=== PATIENT | female | born 1975 | race Caucasian/White ===

== ENCOUNTER 2020-07-19 14:15 | Observation (INO) | payer SELFPAY ==
[2020-07-19 15:14] LABS: Absolute Lymphocytes (CBC) 2.2 K/uL (0.7-4.9); Basophils % 0.9 % (0-1.3); Hematocrit 41.7 % (36.0-45.0); MPV 7.7 fL (7.6-11.3); RBC Red Blood Cell Count 4.63 M/uL (3.86-4.86)
[2020-07-19 15:27] LABS: Protime INR 0.91
[2020-07-19] MEDS ORDERED: LABETALOL 20 MG/4ML SYRINGE IV ONE (15:35)
[2020-07-19 15:41] LABS: ALT/SGPT 28 U/L (12-78); AST/SGOT 11 U/L (15-37); Albumin 3.9 g/dL (3.4-5.0); Alkaline Phosphatase 137 U/L (45-117); BUN Blood Urea Nitrogen 8 mg/dL (7-18); Bicarbonate 29 mmol/L (21-32); Bilirubin Direct 0.1 mg/dL (0-0.2); Bilirubin Total 0.3 mg/dL (0.2-1.0); Glucose Level 128 mg/dL (74-106); NT PRO-BNP 56 pg/mL (<125); Protein, Total 7.7 g/dL (6.4-8.2); Sodium Level 140 mmol/L (136-145); Thyroid Stimulating Hormone 0.685 uIU/mL (0.360-3.740); Troponin (Emerg Dept Use Only) < 0.02 ng/mL (0.0-0.045)
--- NOTE | 2020-07-19 16:20 | RAD REPORT ---
EXAM DESCRIPTION: CT - Angio Aorta For Dissection - 07/19/2020 3:57 pm CLINICAL HISTORY: . Chest and abd pain COMPARISON: None TECHNIQUE: Computed tomography angiography of the chest, abdomen pelvis were obtained. 100 cc Isovue 370 was administered intravenously. Coronal and sagittal reconstruction were performed. MIP 3D reconstruction was performed All CT scans are performed using dose optimization technique as appropriate and may include automated exposure control or mA/KV adjustment according to patient size. FINDINGS: An aortic dissection is not seen. An aortic aneurysm is not displayed. The celiac, SMA and JAVIER are patent . A lung consolidation is not present. A pericardial effusion is not seen. A pleural effusion is not n oted. The lspleen, pancreas adrenals and right kidney demonstrate no significant abnormality. 2 millimeter nonobstructing left renal calculus Fatty liver. No evidence of diverticulitis. Small umbilical hernia IMPRESSION: Negative for an aortic dissection.
--- NOTE | 2020-07-19 16:23 | RAD REPORT ---
EXAM DESCRIPTION: [facility] Single View07/19/2020 3:13 pm CLINICAL HISTORY: Chest pain COMPARISON: none FINDINGS: The lungs appear clear of acute infiltrate. The heart is normal size IMPRESSION: No acute abnormalities displayed
--- NOTE | 2020-07-19 16:59 | EDPHYS ---
Physician Documentation [facility] Name: Ayla Patrick Age: 45 yrs Sex: Female : 1975 Arrival Date: 07/19/2020 Time: 14:16 Bed 3 Private MD: ED Physician Andrea Fernandes HPI: 07/19 14:49 This 45 yrs old Female presents to ER via Ambulatory with complaints of Chest pm1 Pain, High Blood Pressure. 14:49 The patient or guardian reports chest pain that is located primarily in the anterior pm1 aspect of left upper chest. Onset: 30 minutes prior to arrival. The pain radiates to the left arm, left neck, left back. Associated signs and symptoms: Pertinent positives: palpitations, shortness of breath, Has a smokers cough. no change in character. No sputum, Pertinent negatives: abdominal pain, headache, nausea, vomiting. The chest pain is described as aching, a pressure. Duration: The patient or guardian reports a single episode, that is still ongoing. Modifying factors: The symptoms are alleviated by nothing. the symptoms are aggravated by nothing. Severity of pain: in the emergency department the pain is a 6 / 10. The patient has not experienced similar symptoms in the past. The patient has not recently seen a physician, and does not have an established primary care provider, has an appointment scheduled, July [address] Allen. Has not seen Dr. Allen yet. Patient reports blood pressure elevation and palpitations for the past three weeks that have been getting worse. Today 30 minutes prior to arrival, patient with left sided chest pain with radiation to neck, back, and left arm. 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 - Social history:: Smoking status: Patient reports the use of cigarette tobacco products, smokes one-half pack cigarettes per day. ROS: 14:49 Constitutional: Negative for fever, chills, and weight loss, Eyes: Negative for injury, pm1 pain, redness, and discharge, ENT: Negative for injury, pain, and discharge, Neck: Negative for injury, pain, and swelling. 14:49 Abdomen/GI: Negative for abdominal pain, nausea, vomiting, diarrhea, and constipation, Back: Negative for injury and pain, MS/Extremity: Negative for injury and deformity, Skin: Negative for injury, rash, and discoloration. 14:49 Neuro: Negative for headache, weakness, numbness, tingling, and seizure. 14:49 Cardiovascular: Positive for chest pain, orthopnea, palpitations, Negative for edema. 14:49 Respiratory: Positive for cough, shortness of breath, Negative for sputum production. Exam: 14:49 Constitutional: This is a well developed, well nourished patient who is awake, alert, pm1 and in no acute distress. Head/Face: Normocephalic, atraumatic. Neck: Trachea midline, no thyromegaly or masses palpated, and no cervical lymphadenopathy. Supple, full range of motion without nuchal rigidity, or vertebral point tenderness. No Meningismus. Chest/axilla: Normal chest wall appearance and motion. Nontender with no deformity. No lesions are appreciated. 14:49 Back: No spinal tenderness. No costovertebral tenderness. Full range of motion. Skin: Warm, dry with normal turgor. Normal color with no rashes, no lesions, and no evidence of cellulitis. MS/ Extremity: Pulses equal, no cyanosis. Neurovascular intact. Full, normal range of motion. 14:49 Cardiovascular: Rate: tachycardic, actual rate is 116 bpm, Rhythm: regular, Pulses: no pulse deficits are appreciated, Heart sounds: normal, Edema: is not appreciated. 14:49 Respiratory: Exam negative for acute changes, respiratory distress, shortness of breath, Breath sounds: are clear throughout. 14:49 Abdomen/GI: Inspection: obese Palpation: abdomen is soft and non-tender. 14:49 Skin: Exam negative for abrasion. 14:49 Neuro: Exam negative for acute changes, Orientation: is normal, Mentation: is normal, Motor: is normal, moves all fours. Vital Signs: 14:30 BP 182 / 115; Pulse 140; Resp 18; Temp 98.8; Pulse Ox 98% on R/A; Weight 108.86 kg; ll1 Height 5 ft. 6 in. (167.64 cm); Pain 6/10; 15:10 BP 143 / 100 RA Sitting; sr5 15:10 BP 157 / 115 LA Sitting; sr5 15:10 Pulse 119; Resp 18; Pulse Ox 96% on R/A; sr5 15:30 BP 139 / 84; Pulse 92 MON; Resp 17; Pulse Ox 95% on R/A; sv 16:40 BP 123 / 96; Pulse 92 MON; Resp 20; Pulse Ox 98% on R/A; sv 17:20 BP 130 / 99; Pulse 98; Resp 21; Pulse Ox 97% on R/A; hb 20:14 BP 130 / 89; Pulse 82; Resp 18; Pulse Ox 100% on R/A; mg2 14:30 Body Mass Index 38.74 (108.86 kg, 167.64 cm) ll1 15:30 Sinus Rhythm sv 16:40 Sinus Rhythm sv 15:10 Sinus Tach on monitor sr5 MDM: 14:31 Patient medically screened. pm1 16:54 Data reviewed: vital signs. Data interpreted: Pulse oximetry: on room air is 98 %. pm1 Interpretation: normal. Counseling: I had a detailed discussion with the patient and/or guardian regarding: the historical points, exam findings, and any diagnostic results supporting the discharge/admit diagnosis, lab results, radiology results, the need for further work-up and treatment in the hospital. 17:08 Physician consultation: Kalin Fernandes MD was called at 17:08, was contacted at 17:08, pm1 regarding admission, patient's condition, would like medications started, Lopressor 12.5 mg PO . 07/19 14:38 Order name: Basic Metabolic Panel pm1 07/19 14:38 Order name: CBC with Diff pm1 07/19 14:38 Order name: LFT's pm07/19 14:38 Order name: Magnesium pm1 07/19 14:38 Order name: NT PRO-BNP; Complete Time: 16:04 pm1 07/19 14:38 Order name: PT-INR; Complete Time: 16:04 pm1 07/19 14:38 Order name: Troponin (emerg Dept Use Only); Complete Time: 16:04 pm1 07/19 14:38 Order name: XRAY Chest (1 view); Complete Time: 16:38 pm1 07/19 14:39 Order name: TSH; Complete Time: 16:04 pm1 07/19 14:39 Order name: Basic Metabolic Panel; Complete Time: 16:04 EDMS 03/22 14:39 Order name: CBC with Automated Diff; Complete Time: 15:16 EDMS 07/19 14:39 Order name: Liver (Hepatic) Function; Complete Time: 16:04 EDMS 07/19 14:39 Order name: Magnesium; Complete Time: 16:04 EDMS 07/19 17:25 Order name: COVID-19 : Document "Date of Symptom Onset" if Symptomatic. 07/19 14:38 Order name: EKG; Complete Time: 14:39 pm1 07/19 14:38 Order name: Cardiac monitoring; Complete Time: 14:49 pm1 07/19 14:38 Order name: EKG - Nurse/Tech; Complete Time: 14:49 pm1 07/19 14:38 Order name: IV Saline Lock; Complete Time: 15:06 pm1 07/19 14:38 Order name: Labs collected and sent; Complete Time: 15:07 pm1 07/19 14:38 Order name: O2 Per Protocol; Complete Time: 14:49 pm1 07/19 14:38 Order name: O2 Sat Monitoring; Complete Time: 14:49 pm1 07/19 15:09 Order name: CT Aorta for Dissection; Complete Time: 16:38 pm1 Administered Medications: 15:22 Drug: Labetalol 5 mg Route: IVP; Site: left antecubital; hb 16:00 Follow up: Response: No adverse reaction hb 17:19 Drug: Lopressor 12.5 mg Route: PO; hb 20:28 Follow up: Response: No adverse reaction Disposition: 07/20 07:26 Co-signature as Attending Physician, Andrea Fernandes MD. rn Disposition: 07/19/20 16:59 Hospitalization ordered by Kalin Fernandes for Observation. Preliminary diagnosis are Chest pain, unspecified, Palpitations. - Bed requested for Telemetry/MedSurg (observation). - Status is Observation. wh - Condition is Stable. - Problem is new. - Symptoms have improved. Signatures: Dispatcher [employer] Marcela Hernández, Andrea Brandt RN, MD MD rn Garcia, Cindy, RN RN cg Marinas, Patrick, SCREEN PRINTING EQUIPMENT SETTER SCREEN PRINTING EQUIPMENT SETTER pm1 Cara Monroe RN RN Abimbola Pérez RN RN Britany Garcia RN RN ll1 Corrections: (The following items were deleted from the chart) 07/19 17:02 16:59 Hospitalization Ordered by Kalin Fernandes MD for Observation. Preliminary pm1 diagnosis is Chest pain, unspecified. Bed requested for Telemetry/MedSurg (observation). Status is Observation. Condition is Stable. Problem is new. Symptoms have improved. pm1 17:58 17:02 07/19/2020 16:59 Hospitalization Ordered by Kalin Fernandes MD for Observation. sv Preliminary diagnosis is Chest pain, unspecified; Palpitations. Bed requested for Telemetry/MedSurg (observation). Status is Observation. Condition is Stable. Problem is new. Symptoms have improved. pm1 17:58 17:58 07/19/2020 16:59 Hospitalization Ordered by Kalin Fernandes MD for Observation. sv Preliminary diagnosis is Chest pain, unspecified; Palpitations. Bed requested for [facility] ER HOLD. Status is Observation. Condition is Stable. Problem is new. Symptoms have improved. sv 20:12 17:58 07/19/2020 16:59 Hospitalization Ordered by Kalin Fernandes MD for Observation. cg Preliminary diagnosis is Chest pain, unspecified; Palpitations. Bed requested for [facility] ER HOLD. Status is Observation. Condition is Stable. Problem is new. Symptoms have improved. sv 20:27 20:12 07/19/2020 16:59 Hospitalization Ordered by Kalin Fernandes MD for Observation. wh Preliminary diagnosis is Chest pain, unspecified; Palpitations. Bed requested for Telemetry/MedSurg (observation). Status is Observation. Condition is Stable. Problem is new. Symptoms have improved. cg
--- NOTE | 2020-07-19 16:59 | ER ---
Nurse's Notes [facility] Name: Ayla Patrick Age: 45 yrs Sex: Female : 1975 Arrival Date: 07/19/2020 Time: 14:16 Bed 3 Private MD: Diagnosis: Chest pain, unspecified;Palpitations Presentation: 07/19 14:30 Chief complaint: Patient states: L sided CP for 30 min AUTHOR. Radiates into L arm, L ll1 trunk, L neck, L head. +SOB, palpitations, dizzy. Coronavirus screen: Client denies travel out of the [place] in the last 14 days. At this time, the client does not indicate any symptoms associated with coronavirus-19. Ebola Screen: Patient denies travel to an Ebola-affected area in the 21 days before illness onset. Initial Sepsis Screen: Does the patient meet any 2 criteria? HR > 90 bpm. No. Patient's initial sepsis screen is negative. Does the patient have a suspected source of infection? No. Patient's initial sepsis screen is negative. Risk Assessment: Do you want to hurt yourself or someone else? Patient reports no desire to harm self or others. Onset of symptoms was July 19, 2020. 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 - Social history:: Smoking status: Patient reports the use of cigarette tobacco products, smokes one-half pack cigarettes per day. Screenin:45 Abuse screen: Denies threats or abuse. Denies injuries from another. Nutritional hb screening: No deficits noted. Tuberculosis screening: No symptoms or risk factors identified. Fall Risk None identified. Assessment: 14:47 Also complains of intermittent HTN over the last few weeks. Has been feeling her HR sv high but has reduced her caffeine intake daily and drinking more water. General: Appears in no apparent distress. uncomfortable, well groomed, well developed, Behavior is calm, cooperative, appropriate for age. Pain: Complains of pain in left clavicle and anterior aspect of left upper chest Pain does not radiate. Pain currently is 6 out of 10 on a pain scale. Quality of pain is described as sharp, Pain began gradually, today Is continuous. Neuro: Level of Consciousness is awake, alert, obeys commands, Oriented to person, place, time, situation, Moves all extremities. Full function Gait is steady, Speech is normal. Cardiovascular: Patient's skin is warm and dry. Respiratory: Airway is patent Respiratory effort is even, unlabored, Respiratory pattern is regular, symmetrical. Derm: Skin is intact, Skin is pink, warm \T\ dry. Musculoskeletal: Range of motion: intact in all extremities. 16:00 Also complains of no other symptoms. Reassessment: Patient appears in no apparent hb distress at this time. No changes from previously documented assessment. Patient and/or family updated on plan of care and expected duration. Pain level reassessed. Patient is alert, oriented x 3, equal unlabored respirations, skin warm/dry/pink. 17:20 Reassessment: OK to feed/drink patient per ROLLY Ceja. Food and water provided as hb requested. 19:30 Reassessment: Patient appears in no apparent distress at this time. Patient and/or wh family updated on plan of care and expected duration. Pain level reassessed. Patient is alert, oriented x 3, equal unlabored respirations, skin warm/dry/pink. Vital Signs: 14:30 BP 182 / 115; Pulse 140; Resp 18; Temp 98.8; Pulse Ox 98% on R/A; Weight 108.86 kg; ll1 Height 5 ft. 6 in. (167.64 cm); Pain 6/10; 15:10 BP 143 / 100 RA Sitting; sr5 15:10 BP 157 / 115 LA Sitting; sr5 15:10 Pulse 119; Resp 18; Pulse Ox 96% on R/A; sr5 15:30 BP 139 / 84; Pulse 92 MON; Resp 17; Pulse Ox 95% on R/A; sv 16:40 BP 123 / 96; Pulse 92 MON; Resp 20; Pulse Ox 98% on R/A; sv 17:20 BP 130 / 99; Pulse 98; Resp 21; Pulse Ox 97% on R/A; hb 20:14 BP 130 / 89; Pulse 82; Resp 18; Pulse Ox 100% on R/A; mg2 14:30 Body Mass Index 38.74 (108.86 kg, 167.64 cm) ll1 15:30 Sinus Rhythm sv 16:40 Sinus Rhythm sv 15:10 Sinus Tach on monitor sr5 Vitals: 15:10 Cardiac Rhythm Assessment Sinus tach. sr5 ED Course: 14:16 Patient arrived in ED. mr 14:29 Arm band placed on Patient placed in an exam room, on a stretcher. ll1 14:31 Marcial Dowell NP is PHCP. pm1 14:31 Andrea Fernandes MD is Attending Physician. pm1 14:32 Triage completed. ll1 14:42 Marcela Goyal, MILLA is Primary Nurse. sv 14:45 Patient has correct armband on for positive identification. Placed in gown. Bed in low hb position. Call light in reach. Side rails up X 1. demand generator manager on. Pulse ox on. NIBP on. 14:45 Patient maintains SpO2 saturation greater than 95% on room air. hb 14:47 Nurse Practitioner and/or Physician Teamsite Developer to see patient. sv 14:50 EKG done, by ED staff, reviewed by Marcial Dowell NP. sv 15:07 Basic Metabolic Panel Sent. sv 15:07 CBC with Diff Sent. sv 15:07 LFT's Sent. sv 15:07 Magnesium Sent. sv 15:08 Initial lab(s) drawn, by ED staff, sent to lab. Inserted saline lock: 20 gauge in left sr5 antecubital area, using aseptic technique. Blood collected. 15:11 XRAY Chest (1 view) In Process Unspecified. EDMS 15:57 CT Aorta for Dissection In Process Unspecified. EDMS 16:58 Kalin Fernandes MD is Hospitalizing Provider. pm1 19:06 Primary Nurse role handed off by Marcela Goyal, MILLA sv 20:14 No provider procedures requiring assistance completed. Patient admitted, IV remains in mg2 place. 20:25 Abimbola Pérez RN is Primary Nurse. wh Administered Medications: 15:22 Drug: Labetalol 5 mg Route: IVP; Site: left antecubital; hb 16:00 Follow up: Response: No adverse reaction hb 17:19 Drug: Lopressor 12.5 mg Route: PO; hb 20:28 Follow up: Response: No adverse reaction wh Outcome: 16:59 Decision to Hospitalize by Provider. pm1 20:26 Admitted to Med/surg accompanied by tech, via wheelchair, room 216, with chart, Report wh called to Kendra RN 20:26 Condition: stable 20:26 Instructed on the need for admit. 20:27 Patient left the ED. wh Signatures: Dispatcher [employer] EDMS Marcela Goyal, RN RN porter DaríoFaith mr Delmer, Marcial, DIGITAL CONTENT COORDINATOR DIGITAL CONTENT COORDINATOR pm1 Cara Monroe RN RN Yazan Bolanos RN RN sr5 Abimbola Pérez RN RN Dago Avila RN RN mg2 Britany Garcia RN RN ll1
[2020-07-19] MEDS ORDERED: METOPROLOL TAR 25 MG TAB ONE (17:29)
[2020-07-19 18:02] VITALS: BMI 38.4
[2020-07-19] MEDS ORDERED: MORPHINE 2 MG/ML SYR IV PRN (19:15)
[2020-07-19] MEDS ORDERED: INFLUENZA VACCINE (for 3y+) 0.5 ML DOSE IMVAC ONE (20:00)
[2020-07-19 21:36] LABS: HDL Cholesterol 55 mg/dL (40-60); LDL Cholesterol, Calculated 97 (<130); Troponin I < 0.02 ng/mL (0.0-0.045)
[2020-07-19] MEDS: METOPROLOL TAR 25 MG TAB PO SCH (21:58)
[2020-07-19] MEDS: ACETAMINOPHEN 500 MG TAB PO PRN (21:59)
--- NOTE | 2020-07-19 22:55 | P.HP ---
Certification for Inpatient Patient admitted to: Observation With expected LOS: <2 Midnights Patient will require the following post-hospital care: None Practitioner: I am a practitioner with admitting privileges, knowledge of patient current condition, hospital course, and medical plan of care. Services: Services provided to patient in accordance with Admission requirements found in Title 42 Section 412.3 of the Code of Federal Regulations <Serg Kim Nalini - Last Filed: 07/19/20 22:48> Patient History Date of Service: 07/19/20 Reason for admission: chest pain rule out History of Present Illness: Ms. Patrick is a 45 yo female with JENNIE and Perez's esophagus and h/o of vulvular cancer with vulvectomy here today with 8/10 left sided chest pain radiating to left shoulder described as crushing, squeezing, and stabbing that started when she was walking [place] the beach. It was accompanied by headache, blurry vision, dizziness, nausea and diaphoresis. She reports that she checks her BP at home. Since March she has episodes of headache, blurry vision, and palpitations and when she checks her BP it is elevated to the 170s, normal BP for her is 110s. She reports recent increase in fatigue and SOB, recent PND. First two troponins <0.02. CXR with no acute abnormalities. CT negative for aortic dissection. - Past Medical/Surgical History -: Perez's esophagus -: GERD -: anxiety -: depression -: JENNIE not on CPAP -: Vulvular cancer -: Appendectomy -: Tubal ligation -: Vulvectomy - Family History Father -: Heart disease, Hypertension Notes: aortic dissection Mother -: Heart disease, Lung disease, Diabetes, Cancer - Social History Smoking Status: Current every day smoker Counseled patient to stop smoking for: less than 10 minutes Smoking therapy provided: Yes Patient receptive to therapy: Yes (currently on wellbutrin ) Alcohol use: No CD- Drugs: No Caffeine use: Yes Place of Residence: Home <Serg Kim - Last Filed: 07/19/20 22:48> Date of Service: 07/19/20 <Macey Aldridge - Last Filed: 07/27/20 05:16> Allergies No Known Allergies Allergy (Verified 07/19/20 17:57) Home Medications: Aspirin [Aspirin EC 81 MG] 81 mg PO DAILY 07/19/20 Bupropion HCl [Wellbutrin Xl] 300 mg PO DAILY 07/19/20 Pantoprazole [Protonix Tab] 40 mg PO DAILY 07/19/20 Review of Systems General: Sweats, Malaise, As per HPI Eyes: Vision Change, As per HPI ENT: Unremarkable Respiratory: Shortness of Breath, As per HPI Cardiovascular: Chest Pain, Palpitations, Paroxysmal Noc. Dyspnea, As per HPI Gastrointestinal: Nausea, As per HPI Genitourinary: Unremarkable Musculoskeletal: Unremarkable Integumentary: Unremarkable Neurological: As per HPI Lymphatics: Unremarkable <Serg Kim - Last Filed: 07/19/20 22:48> Physical Examination - Vital Signs Temperature: 97.0 F Blood Pressure: 127/72 Pulse: 79 Respirations: 18 Pulse Ox (%): 98 - Physical Exam General: Alert, In no apparent distress, Oriented x3, Cooperative HEENT: Atraumatic, Normocephalic, PERRLA, Mucous membr. moist/pink, EOMI, Sclerae nonicteric Neck: Supple, 2+ carotid pulse no bruit, JVD not distended, No Thyromegaly, No LAD Respiratory: Diminished, Expiratory wheezes Cardiovascular: Normal pulses, Regular rate/rhythm, Normal S1 S2, No gallops, No rubs, No murmurs, Edema Capillary refill: <2 Seconds Gastrointestinal: Normal bowel sounds, Soft and benign, Non-distended, No ascites, No tenderness, No masses, No rebound, No guarding Musculoskeletal: No clubbing, No swelling, No contractures, No erythema, No tenderness, No warmth Integumentary: No rashes, No breakdown, No significant lesion, No tenderness/swelling, No erythema, No warmth, No cyanosis Neurological: Normal gait, Normal speech, Normal strength at 5/5 x4 extr, Normal tone, Sensation intact, Cranial nerves 3-12 intact, Normal affect Lymphatics: No axilla or inguinal lymphadenopathy - Studies Laboratory Data (last 24 hrs) 07/19/20 14:59: PT 10.4, INR 0.91 07/19/20 14:59: WBC 9.50, Hgb 14.2, Hct 41.7, Plt Count 330 07/19/20 14:59: Sodium 140, Potassium 4.0, BUN 8, Creatinine 0.86, Glucose 128 H, Magnesium 2.0, Total Bilirubin 0.3, AST 11 L, ALT 28, Alkaline Phosphatase 137 H <Serg Kim - Last Filed: 07/19/20 22:48> Assessment and Plan - Problems (Diagnosis) (1) Chest pain Status: Acute Plan: Cardiology consulted. started ASA, BB, PRN morphine. Initial troponins normal. TSH normal. Triglycerides of 205, rest of panel wnl. A1c pending. patient currently without chest pain. Qualifiers: Chest pain type: unspecified Qualified Code(s): R07.9 - Chest pain, unspecified (2) Essential hypertension Status: Acute Plan: no previous diagnosis of hypertension but given elevated measurements at home will await cardiology recommendations for further BP control. currently stable. has an appointment to establish outpatient care with Dr. Allen on 07/29. (3) Barretts esophagus Status: Acute Plan: stable, continue protonix. Qualifiers: Perez's esophagus type: with dysplasia of unspecified degree Qualified Code(s): K22.719 - Perez's esophagus with dysplasia, unspecified; K22.71 - Perez's esophagus with dysplasia (4) Tobacco abuse Status: Acute Plan: continue wellbutrin. discussed importance of smoking cessation with patient. Discharge Plan: Home Plan to discharge in: 24 Hours - Advance Directives Does patient have a Living Will: No Does patient have a Durable POA for Healthcare: No - Code Status/Comfort Care Code Status Assessed: Yes (full code ) Critical Care: No Time Spent Managing Pts Care (In Minutes): 70 <Serg Kim - Last Filed: 07/19/20 22:48> Date of Service: 07/19/20 Patient has done well during hospital stay. Patient will be ruled out for acute coronary syndrome. Chest pain has improved. Monitor overnight. <Macey Aldridge - Last Filed: 07/27/20 05:16>
[2020-07-20 04:08] LABS: Absolute Lymphocytes (CBC) 3.4 K/uL (0.7-4.9); Basophils % 1.1 % (0-1.3); Hematocrit 37.5 % (36.0-45.0); Lymphocytes % 32.7 % (15.3-44.8); MPV 7.9 fL (7.6-11.3)
[2020-07-20] MEDS: ACETAMINOPHEN 500 MG TAB PO PRN ×2 (04:28→12:13)
[2020-07-20] MEDS ORDERED: ONDANSETRON 4 MG/2 ML VIAL IV PRN (04:35)
[2020-07-20 04:55] LABS: Albumin 3.2 g/dL (3.4-5.0); Bilirubin Total 0.2 mg/dL (0.2-1.0); Magnesium 2.2 mg/dL (1.8-2.4); Potassium 3.8 mmol/L (3.5-5.1); Protein, Total 6.5 g/dL (6.4-8.2)
--- NOTE | 2020-07-20 06:21 | EKG ---
Test Date: 2020-07-19 Test Time: 13:49:15 Technician Terminal And Repeater: SV MEASUREMENT RESULTS: Intervals: Rate: 116 MT: 130 QRSD: 70 QT: 320 QTc: 444 [place]: P: 71 MT: 130 QRS: 20 T: 62 INTERPRETIVE STATEMENTS: Sinus tachycardia Possible Left atrial enlargement Borderline ECG No previous ECG available for comparison Electronically Signed On 07-20-20 06:19:38 CDT by Maikel Mcfarlane
[2020-07-20] MEDS ORDERED: ASPIRIN EC 81 MG TAB PO SCH (09:00)
[2020-07-20] MEDS: METOPROLOL TAR 25 MG TAB PO SCH (09:00)
[2020-07-20] MEDS ORDERED: ENOXAPARIN 40 MG/0.4 ML SQ SCH (09:00)
[2020-07-20] MEDS ORDERED: POTASSIUM CL SA 10 MEQ TAB PO ONE (13:00)
[2020-07-20] MEDS ORDERED: BUPROPION HCL XL 150 MG TAB PO SCH (14:41)
[2020-07-20 16:27] VITALS: O2SAT 98
[2020-07-20 16:54] VITALS: BP 123/73; TEMP 97.9
--- NOTE | 2020-07-21 09:52 | ECHO ---
HEIGHT: 5 ft 6 in WEIGHT: 238 lb 1.588 oz DATE OF STUDY: 07/20/[address]: Macey Aldridge MD 2-DIMENSIONAL: YES M.MODE: YES DOPPLER: YES COLOR FLOW: YES TDS: YES PORTABLE: DEFINITY: BUBBLE STUDY: DIAGNOSIS: CHEST PAIN CARDIAC HISTORY: CATHERIZATION: NO SURGERY: NO PROSTHETIC VALVE: NO PACEMAKER: NO MEASUREMENTS (cm) DIASTOLIC (NORMALS) SYSTOLIC (NORMALS) IVSd 1.2 (0.6-1.2) LA Diam 3.1 (1.9-4.0) LVEF 67% LVIDd 4.1 (3.5-5.7) LVIDs 2.6 (2.0-3.5) %FS 36% LVPWd 1.2 (0.6-1.2) Ao Diam 2.8 (2.0-3.7) 2 DIMENSIONAL ASSESSMENT: RIGHT ATRIUM: NORMAL LEFT ATRIUM: NORMAL RIGHT VENTRICLE: NORMAL LEFT VENTRICLE: NORMAL TRICUSPID VALVE: NORMAL MITRAL VALVE: NORMAL PULMONIC VALVE: NORMAL AORTIC VALVE: NORMAL PERICARDIAL EFFUSION: NONE AORTIC ROOT: NORMAL LEFT VENTRICULAR WALL MOTION: NORMAL DOPPLER/COLOR FLOW: NORMAL COMMENTS: NORMAL 2-DIMENSIONAL ECHOCARDIOGRAM WITH DOPPLER. NO WALL MOTION ABNORMALITY. NO EFFUSION. TECHNOLOGIST: OLEKSANDR WEBBER
--- NOTE | 2020-07-22 07:22 | EKG ---
Test Date: 2020-07-20 Test Time: 04:43:33 [place] Technician: RT MEASUREMENT RESULTS: Intervals: Rate: 71 GA: 146 QRSD: 76 QT: 390 QTc: 423 [place]: P: 66 GA: 146 QRS: 24 T: 48 INTERPRETIVE STATEMENTS: Normal sinus rhythm Normal ECG Compared to ECG 07/19/2020 13:49:15 Sinus tachycardia no longer present Electronically Signed On 07-22-20 07:19:11 CDT by Maikel Mcfarlane
--- NOTE | 2020-07-27 05:17 | P.DS ---
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 EKG and troponins initially have been negative. Hospital Course: Patient's echocardiogram and CT dissected studies were unremarkable. Patient will follow with cardiology as an outpatient for further testing if chest pain continued. Patient had a pleuritic component to it but no pneumonia on chest x- ray. Outpatient follow up with PCP cardiology and pulmonary Vital Signs/Physical Exam: Temp Pulse Resp BP Pulse Ox 97.9 F 80 18 123/73 98 07/20/20 16:00 07/20/20 16:00 07/20/20 16:00 07/20/20 16:00 07/20/20 16:00 General: Alert, In no apparent distress, Oriented x3 Laboratory Data at Discharge: WBC 10.40 K/uL (4.3-10.9) 07/20/20 03:34 Hgb 13.0 g/dL (12.0-15.0) 07/20/20 03:34 Hct 37.5 % (36.0-45.0) 07/20/20 03:34 Plt Count 303 K/uL (152-406) 07/20/20 03:34 PT 10.4 SECONDS (9.5-12.5) 07/19/20 14:59 INR 0.91 07/19/20 14:59 Sodium 142 mmol/L (136-145) 07/20/20 03:34 Potassium 3.8 mmol/L (3.5-5.1) 07/20/20 03:34 BUN 12 mg/dL (7-18) 07/20/20 03:34 Creatinine 0.88 mg/dL (0.55-1.3) 07/20/20 03:34 Glucose 130 mg/dL (74-106) H 07/20/20 03:34 Magnesium 2.2 mg/dL (1.8-2.4) 07/20/20 03:34 Total Bilirubin 0.2 mg/dL (0.2-1.0) 07/20/20 03:34 AST 12 U/L (15-37) L 07/20/20 03:34 ALT 22 U/L (12-78) 07/20/20 03:34 Alkaline Phosphatase 105 U/L (45-117) 07/20/20 03:34 Troponin I < 0.02 ng/mL (0.0-0.045) 07/20/20 09:05 Triglycerides 205 mg/dL (<150) H 07/19/20 20:57 Cholesterol 193 mg/dL (<200) 07/19/20 20:57 HDL Cholesterol 55 mg/dL (40-60) 07/19/20 20:57 Cholesterol/HDL Ratio 3.51 07/19/20 20:57 Home Medications: Aspirin [Aspirin EC 81 MG] 81 mg PO DAILY 07/19/20 Bupropion HCl [Wellbutrin Xl] 300 mg PO DAILY 07/19/20 Pantoprazole [Protonix Tab] 40 mg PO DAILY 07/19/20 Physician Discharge Instructions: OK TO DC IV AND DC HOME FOLLOW-UP WITH PRIMARY CARE PROVIDER IN 1-2 WEEKS FOLLOW-UP WITH CARDIOLOGY IN 1-2 WEEKS RETURN TO THE ER IF symptoms worsens CALL or TEXT DR. HICKS AT [phone] IF ANY QUESTIONS REGARDING HOSPITAL STAY. PLEASE CALL THE FLOOR AT [phone] IF ANY MEDICATION OR NURSING QUESTIONS. Diet: AHA Activity: Fall precautions Followup: NONE,NONE [Primary Care Provider] - Time spent managing pt's care (in minutes): 35
== END 2020-07-20 18:11 | disposition home or self-care (01) ==
LOC: ER 14:15 → ERHOLD 17:28 → 2ND 20:40
PROVIDERS: ADMIT Hospitalist; ATTEND Hospitalist
DX: R07.9 Chest pain, unspecified (principal); R00.2 Palpitations; I10 Essential (primary) hypertension; G47.33 Obstructive sleep apnea (adult) (pediatric); K22.70 Barrett's esophagus without dysplasia; K21.9 Gastro-esophageal reflux disease without esophagitis; F41.9 Anxiety disorder, unspecified; F32.9 Major depressive disorder, single episode, unspecified; F17.210 Nicotine dependence, cigarettes, uncomplicated; Z71.6 Tobacco abuse counseling; Z99.81 Dependence on supplemental oxygen; Z79.82 Long term (current) use of aspirin; Z85.44 Personal history of malignant neoplasm of other female genital organs; Z90.79 Acquired absence of other genital organ(s); Z98.51 Tubal ligation status; Z82.49 Family history of ischemic heart disease and other diseases of the circulatory system; Z83.3 Family history of diabetes mellitus; Z80.9 Family history of malignant neoplasm, unspecified
CPT/HCPCS: 36415; 71045; 71275; 74175; 80048; 80053; 80061; 80076; 83036; 83735; 83880; 84443; 84484; 85025; 85610; 93005; 93306; 94760; 96374; 99285; G0378; J2405; Q9967